=== PATIENT | female | born 1975 | race Caucasian/White ===

== ENCOUNTER 2017-11-17 18:35 | Inpatient (IN) | payer MEDICAID, OTHER ==
[2017-11-17 19:43] LABS: URINE BLOOD (Dip) POC Negative (NEGATIVE); URINE GLUCOSE (Dip) POC Negative (NEGATIVE); URINE KETONES (Dip) POC Negative (NEGATIVE); URINE LEUKOCYTE EST (Dip) POC Negative (NEGATIVE); URINE NITRITE (Dip) POC Negative (NEGATIVE); URINE TOTAL PROTEIN POC Negative (NEGATIVE)
[2017-11-17 20:05] LABS: ADD MAN DIFF? NO
[2017-11-17] MEDS: IBUPROFEN 600 MG TAB PO (20:09)
[2017-11-17] MEDS: SODIUM CHLORIDE 0.9% 1L BAG IV* (20:09)
[2017-11-17] MEDS: CEFTRIAXONE 1 GM/50 ML (PMX) 50 ML IVPB (20:09)
[2017-11-17 20:10] LABS: ADD UMIC NO; UR ASCORBIC ACID NEGATIVE (NEGATIVE); UR BILIRUBIN (Dip) NEGATIVE (NEGATIVE); UR BLOOD (Dip) NEGATIVE (NEGATIVE); UR CLARITY CLEAR (CLEAR); UR COLOR STRAW (YELLOW); UR GLUCOSE (Dip) NEGATIVE (NEGATIVE); UR KETONES (Dip) NEGATIVE (NEGATIVE); UR LEUKOCYTE ESTERASE (Dip) NEGATIVE Leu/ul (NEGATIVE); UR NITRITE (Dip) NEGATIVE (NEGATIVE); UR SPECIFIC GRAVITY (Dip) 1.011 (1.003-1.030); UR TOTAL PROTEIN (Dip) NEGATIVE (NEGATIVE); UR UROBILINOGEN (Dip) NEGATIVE (NEGATIVE)
[2017-11-17] MEDS: DIPHENHYDRAMINE 50 MG INJ IV (20:10)
[2017-11-17 20:16] LABS: WHITE BLOOD COUNT 13.9 10^3/ul (4.8-10.8)
[2017-11-17 20:16] LABS: BASOPHILS % 0.1 % (0.0-2.0); EOSINOPHILS # 0.4 10^3/ul (0.0-0.5); EOSINOPHILS % 2.5 % (0.0-7.0); HEMATOCRIT 34.2 % (37.0-47.0); HEMOGLOBIN 11.2 g/dl (12.0-16.0); LYMPHOCYTES # 2.3 10^3/ul (0.8-2.9); LYMPHOCYTES % 16.3 % (15.0-51.0); MEAN CORPUSCULAR HEMOGLOBIN 28.8 pg (29.0-33.0); MEAN CORPUSCULAR HGB CONC 32.7 g/dl (32.0-37.0); MEAN CORPUSCULAR VOLUME 87.9 fl (82.0-101.0); MEAN PLATELET VOLUME 10.4 fl (7.4-10.4); MONOCYTE # 1.1 10^3/ul (0.3-0.9); MONOCYTES % 7.8 % (0.0-11.0); NEUTROPHIL # 10.2 10^3/ul (1.6-7.5); NEUTROPHILS % 72.9 % (39.0-77.0); PLATELET COUNT 228 10^3/UL (140-415); RED BLOOD COUNT 3.89 10^6/ul (4.20-5.40); RED CELL DISTRIBUTION WIDTH 16.4 % (11.5-14.5)
[2017-11-17 20:25] LABS: ALANINE AMINOTRANSFERASE 14 IU/L (13-69); ALBUMIN 3.9 g/dl (3.3-4.9); ALKALINE PHOSPHATASE 86 IU/L (42-121); ANION GAP 14 (8-16); ASPARTATE AMINO TRANSFERASE 22 IU/L (15-46); BILIRUBIN,INDIRECT 0.4 mg/dl (0-1.1); BILIRUBIN,TOTAL 0.4 mg/dl (0.2-1.3); BLOOD UREA NITROGEN 9 mg/dl (7-20); CALCIUM 8.8 mg/dl (8.4-10.2); CARBON DIOXIDE 26 mmol/L (21-31); CHLORIDE 103 mmol/L (97-110); CREATININE 0.53 mg/dl (0.44-1.00); GLUCOSE 103 mg/dl (70-220); INR 0.91; LIPASE 42 U/L (23-300); POTASSIUM 3.9 mmol/L (3.5-5.1); PROTIME 12.3 Sec (11.9-14.9); SODIUM 139 mmol/L (135-144); TOTAL PROTEIN 7.8 g/dl (6.1-8.1)
[2017-11-17 20:36] LABS: TROPONIN-I < 0.012 ng/ml (0.000-0.120)
[2017-11-17 20:46] LABS: LACTIC ACID 1.3 mmol/L (0.5-2.0)
[2017-11-17] MEDS: MUPIROCIN 2% 22 GM OINT TOP (20:56)
[2017-11-17 21:19] LABS: PARTIAL THROMBOPLASTIN TIME 30.2 Sec (23.0-35.0)
[2017-11-17] MEDS ORDERED: VANCOMYCIN 1 GM (PMX) 250 ML IVPB (22:00)
[2017-11-17 22:21] LABS: LACTIC ACID 0.7 mmol/L (0.5-2.0)
[2017-11-17] MEDS ORDERED: VANCOMYCIN IV PER PHARMACY XX (23:00)
[2017-11-18] MEDS: VANCOMYCIN 1.5 GM in SOD CHLORIDE 0.9% 250 ML IVPB (00:14)
[2017-11-18 00:18] LABS: LACTIC ACID 0.8 mmol/L (0.5-2.0)
[2017-11-18 05:39] LABS: ADD MAN DIFF? NO
[2017-11-18 05:42] LABS: BASOPHILS % 0.1 % (0.0-2.0); EOSINOPHILS # 0.4 10^3/ul (0.0-0.5); EOSINOPHILS % 4.3 % (0.0-7.0); HEMATOCRIT 30.6 % (37.0-47.0); HEMOGLOBIN 9.6 g/dl (12.0-16.0); LYMPHOCYTES # 2.1 10^3/ul (0.8-2.9); LYMPHOCYTES % 20.7 % (15.0-51.0); MEAN CORPUSCULAR HEMOGLOBIN 27.8 pg (29.0-33.0); MEAN CORPUSCULAR HGB CONC 31.4 g/dl (32.0-37.0); MEAN CORPUSCULAR VOLUME 88.7 fl (82.0-101.0); MEAN PLATELET VOLUME 10.3 fl (7.4-10.4); MONOCYTE # 0.8 10^3/ul (0.3-0.9); MONOCYTES % 8.5 % (0.0-11.0); NEUTROPHIL # 6.6 10^3/ul (1.6-7.5); PLATELET COUNT 185 10^3/UL (140-415); RED BLOOD COUNT 3.45 10^6/ul (4.20-5.40); RED CELL DISTRIBUTION WIDTH 16.8 % (11.5-14.5)
[2017-11-18 05:42] LABS: WHITE BLOOD COUNT 9.9 10^3/ul (4.8-10.8)
[2017-11-18] MEDS: SOD CHLORIDE 0.9% 1,000 ML IV ×3 (05:57→18:04)
[2017-11-18 06:00] LABS: ALANINE AMINOTRANSFERASE 26 IU/L (13-69); ALBUMIN 2.5 g/dl (3.3-4.9); ALBUMIN/GLOBULIN RATIO 0.75; ALKALINE PHOSPHATASE 56 IU/L (42-121); ANION GAP 8 (8-16); ASPARTATE AMINO TRANSFERASE 18 IU/L (15-46); BILIRUBIN,INDIRECT 0.9 mg/dl (0-1.1); BILIRUBIN,TOTAL 0.9 mg/dl (0.2-1.3); BLOOD UREA NITROGEN 6 mg/dl (7-20); CALCIUM 7.8 mg/dl (8.4-10.2); CARBON DIOXIDE 24 mmol/L (21-31); CHLORIDE 112 mmol/L (97-110); CREATININE 0.48 mg/dl (0.44-1.00); GLUCOSE 87 mg/dl (70-220); MAGNESIUM 2.1 mg/dl (1.7-2.5); PHOSPHORUS 2.5 mg/dl (2.5-4.9); POTASSIUM 3.6 mmol/L (3.5-5.1); SODIUM 140 mmol/L (135-144); TOTAL PROTEIN 5.8 g/dl (6.1-8.1)
[2017-11-18] MEDS: ACETAMINOPHEN 325 MG TAB PO (07:58)
[2017-11-18] MEDS ORDERED: HYDROCODONE/APAP (10/325) TAB PO (08:30)
[2017-11-18] MEDS: HYDROmorphONE 1 MG/ML SYG IV (08:48)
[2017-11-18 09:51] LABS: IRON 55 ug/dl (35-150)
[2017-11-18 10:01] LABS: % IRON SATURATION 16 % SAT (22-52); TOTAL IRON BINDING CAPACITY 341 ug/dl (241-421)
[2017-11-18] MEDS: VANCOMYCIN 1.25 GM in SOD CHLORIDE 0.9% 250 ML IVPB ×2 (10:40→22:40)
[2017-11-18] MEDS: morphine 2 MG INJ IV ×3 (13:36→22:40)
[2017-11-18] MEDS: AMPICILLIN/SULB 3 GM/NS (PMX) 100 ML IVPB (22:40)
[2017-11-19] MEDS: AMPICILLIN/SULB 3 GM/NS (PMX) 100 ML IVPB ×4 (01:58→17:11)
[2017-11-19] MEDS: SOD CHLORIDE 0.9% 1,000 ML IV ×3 (05:59→13:33)
[2017-11-19] MEDS: VANCOMYCIN 1.25 GM in SOD CHLORIDE 0.9% 250 ML IVPB (13:04)
[2017-11-20] MEDS: AMPICILLIN/SULB 3 GM/NS (PMX) 100 ML IVPB ×5 (00:29→23:34)
[2017-11-20 01:19] LABS: VANCOMYCIN,TROUGH 6.9 ug/ml (10.0-20.0)
[2017-11-20] MEDS: VANCOMYCIN 1.25 GM in SOD CHLORIDE 0.9% 250 ML IVPB (01:37)
[2017-11-20 06:33] LABS: ADD MAN DIFF? NO
[2017-11-20 06:37] LABS: BASOPHILS % 0.2 % (0.0-2.0); EOSINOPHILS # 0.3 10^3/ul (0.0-0.5); EOSINOPHILS % 3.1 % (0.0-7.0); HEMATOCRIT 32.5 % (37.0-47.0); HEMOGLOBIN 10.4 g/dl (12.0-16.0); LYMPHOCYTES % 19.4 % (15.0-51.0); MEAN CORPUSCULAR HEMOGLOBIN 28.2 pg (29.0-33.0); MEAN CORPUSCULAR VOLUME 88.1 fl (82.0-101.0); MEAN PLATELET VOLUME 9.9 fl (7.4-10.4); MONOCYTE # 0.8 10^3/ul (0.3-0.9); MONOCYTES % 7.8 % (0.0-11.0); NEUTROPHILS % 69.2 % (39.0-77.0); PLATELET COUNT 268 10^3/UL (140-415); RED BLOOD COUNT 3.69 10^6/ul (4.20-5.40); RED CELL DISTRIBUTION WIDTH 15.9 % (11.5-14.5)
[2017-11-20 07:07] LABS: ANION GAP 10 (8-16); BLOOD UREA NITROGEN 9 mg/dl (7-20); CALCIUM 8.7 mg/dl (8.4-10.2); CARBON DIOXIDE 27 mmol/L (21-31); CHLORIDE 107 mmol/L (97-110); CREATININE 0.49 mg/dl (0.44-1.00); GLUCOSE 84 mg/dl (70-220); POTASSIUM 3.5 mmol/L (3.5-5.1); SODIUM 140 mmol/L (135-144)
[2017-11-20] MEDS: VANCOMYCIN 1.5 GM in SOD CHLORIDE 0.9% 250 ML IVPB (08:31)
[2017-11-20] MEDS: ACETAMINOPHEN 325 MG TAB PO ×2 (08:31→14:08)
[2017-11-20] MEDS: VANCOMYCIN 750 MG in SOD CHLORIDE 0.9% 150 ML IVPB (16:12)
[2017-11-21] MEDS: VANCOMYCIN 750 MG in SOD CHLORIDE 0.9% 150 ML IVPB ×3 (01:01→17:44)
[2017-11-21] MEDS: AMPICILLIN/SULB 3 GM/NS (PMX) 100 ML IVPB ×3 (05:42→19:56)
[2017-11-21 06:55] LABS: ADD MAN DIFF? NO
[2017-11-21 07:03] LABS: BASOPHILS % 0.1 % (0.0-2.0); EOSINOPHILS # 0.4 10^3/ul (0.0-0.5); EOSINOPHILS % 4.6 % (0.0-7.0); HEMATOCRIT 32.6 % (37.0-47.0); HEMOGLOBIN 10.2 g/dl (12.0-16.0); LYMPHOCYTES # 1.9 10^3/ul (0.8-2.9); LYMPHOCYTES % 20.8 % (15.0-51.0); MEAN CORPUSCULAR HGB CONC 31.3 g/dl (32.0-37.0); MEAN CORPUSCULAR VOLUME 89.6 fl (82.0-101.0); MONOCYTE # 0.7 10^3/ul (0.3-0.9); MONOCYTES % 7.8 % (0.0-11.0); NEUTROPHILS % 66.4 % (39.0-77.0); PLATELET COUNT 277 10^3/UL (140-415); RED BLOOD COUNT 3.64 10^6/ul (4.20-5.40); RED CELL DISTRIBUTION WIDTH 16.1 % (11.5-14.5)
[2017-11-21 07:21] LABS: PHOSPHORUS 3.8 mg/dl (2.5-4.9)
[2017-11-21 07:21] LABS: MAGNESIUM 2.1 mg/dl (1.7-2.5)
[2017-11-21 07:39] LABS: CHOL/HDL RATIO 3.8 RATIO; HDL CHOLESTEROL 34 mg/dl (34-88); LDL CHOLESTEROL,CALCULATED 85 mg/dl; TRIGLYCERIDES 61 mg/dl (0-149)
[2017-11-21 07:39] LABS: CHOLESTEROL 131 mg/dl (100-200)
[2017-11-21 07:40] LABS: ANION GAP 10 (8-16); BLOOD UREA NITROGEN 9 mg/dl (7-20); CALCIUM 8.7 mg/dl (8.4-10.2); CARBON DIOXIDE 27 mmol/L (21-31); CHLORIDE 107 mmol/L (97-110); CREATININE 0.52 mg/dl (0.44-1.00); GLUCOSE 84 mg/dl (70-220); POTASSIUM 3.8 mmol/L (3.5-5.1); SODIUM 140 mmol/L (135-144)
[2017-11-21 08:53] LABS: HEMOGLOBIN A1C 5.4 % (0-5.9)
[2017-11-22] MEDS: AMPICILLIN/SULB 3 GM/NS (PMX) 100 ML IVPB ×4 (00:01→17:48)
[2017-11-22 01:54] LABS: VANCOMYCIN,TROUGH 9.7 ug/ml (10.0-20.0)
[2017-11-22] MEDS: VANCOMYCIN 1 GM 250 ML IVPB ×3 (02:03→17:48)
[2017-11-22 05:50] LABS: ADD MAN DIFF? NO
[2017-11-22 05:55] LABS: BASOPHILS % 0.1 % (0.0-2.0); EOSINOPHILS # 0.3 10^3/ul (0.0-0.5); EOSINOPHILS % 3.9 % (0.0-7.0); HEMATOCRIT 32.8 % (37.0-47.0); HEMOGLOBIN 10.6 g/dl (12.0-16.0); LYMPHOCYTES # 2.3 10^3/ul (0.8-2.9); LYMPHOCYTES % 28.4 % (15.0-51.0); MEAN CORPUSCULAR HEMOGLOBIN 28.3 pg (29.0-33.0); MEAN CORPUSCULAR HGB CONC 32.3 g/dl (32.0-37.0); MEAN CORPUSCULAR VOLUME 87.7 fl (82.0-101.0); MEAN PLATELET VOLUME 9.3 fl (7.4-10.4); MONOCYTE # 0.6 10^3/ul (0.3-0.9); MONOCYTES % 7.2 % (0.0-11.0); NEUTROPHIL # 4.7 10^3/ul (1.6-7.5); NEUTROPHILS % 59.6 % (39.0-77.0); PLATELET COUNT 305 10^3/UL (140-415); RED BLOOD COUNT 3.74 10^6/ul (4.20-5.40); RED CELL DISTRIBUTION WIDTH 15.9 % (11.5-14.5)
[2017-11-22 05:55] LABS: WHITE BLOOD COUNT 7.9 10^3/ul (4.8-10.8)
[2017-11-22 06:18] LABS: PHOSPHORUS 4.2 mg/dl (2.5-4.9)
[2017-11-22 06:18] LABS: ANION GAP 12 (8-16); BLOOD UREA NITROGEN 10 mg/dl (7-20); CALCIUM 8.5 mg/dl (8.4-10.2); CARBON DIOXIDE 26 mmol/L (21-31); CHLORIDE 107 mmol/L (97-110); CREATININE 0.55 mg/dl (0.44-1.00); GLUCOSE 87 mg/dl (70-220); POTASSIUM 3.9 mmol/L (3.5-5.1); SODIUM 141 mmol/L (135-144)
[2017-11-22] MEDS ORDERED: POLYMYXIN/BACITRACIN 1L IRRIG (13:36)
[2017-11-22] MEDS ORDERED: LIDOCAINE 100 MG SYRINGE (13:40)
[2017-11-22] MEDS ORDERED: PROPOFOL 20 ML (13:40)
[2017-11-22] MEDS ORDERED: MEPERIDINE /PF (100 MG/2 ML) AMPULE (13:43)
[2017-11-22] MEDS ORDERED: METOCLOPRAMIDE 10 MG INJ IV (14:00)
[2017-11-22] MEDS ORDERED: LABETALOL HCL 20MG INJ IV (14:00)
[2017-11-22] MEDS ORDERED: DIPHENHYDRAMINE 50 MG INJ IV (14:00)
[2017-11-22] MEDS ORDERED: HYDROmorphONE 1 MG/5 ML IV SYRINGE IV ×3 (14:00)
[2017-11-22] MEDS ORDERED: MEPERIDINE 25 MG INJ IV (14:00)
[2017-11-22] MEDS ORDERED: FENTAnyl 50 MCG/ML VIAL IV ×3 (14:00)
[2017-11-22] MEDS ORDERED: hydrALAzine 20 MG INJ IV (14:00)
[2017-11-22] MEDS ORDERED: EPHEDrine SULFATE 50 MG/5 ML SYG IV (14:00)
[2017-11-22] MEDS ORDERED: MIDAZOLAM 1 MG/ML 2 ML INJ IV (14:00)
[2017-11-22] MEDS ORDERED: OXYCODONE/ACETAMINOPHEN (5/325) TAB PO ×2 (14:00)
[2017-11-22] MEDS ORDERED: ONDANSETRON 4 MG INJ IV (14:00)
[2017-11-22] MEDS ORDERED: MIDAZOLAM 1 MG/ML 2 ML INJ (14:05)
[2017-11-22] MEDS: BUPIVACAINE 0.25% (MPF) 30 ML INJ (14:23)
[2017-11-22] MEDS: LIDOCAINE 1%/EPI 30 ML INJ (14:24)
[2017-11-22] MEDS: POLYMYXIN/BACITRACIN 1L IRRIG IRR (14:25)
[2017-11-22] MEDS ORDERED: HYDROCODONE/APAP (5/325) TAB PO (15:00)
[2017-11-22] MEDS: ONDANSETRON 4 MG INJ IV (18:43)
== END 2017-11-22 20:21 | disposition home or self-care (01) | DRG 854 ==
LOC: PP2 21:48 → E/R 18:35 → PP2 20:52
PROC: 0W9F0ZX Drainage of Abdominal Wall, Open Approach, Diagnostic (ICD-10-PCS; principal; 2017-11-22 13:30)
DX: A41.9 Sepsis, unspecified organism (principal); L03.311 Cellulitis of abdominal wall; L02.211 Cutaneous abscess of abdominal wall; N39.0 Urinary tract infection, site not specified; D64.9 Anemia, unspecified
CPT/HCPCS: 36415; 76536; 80048; 80053; 80061; 80202; 81003; 81025; 83036; 83540; 83605; 83690; 83735; 84100; 84484; 84703; 85025; 85610; 85730; 87040; 87070; 87081; 87086; 93005; 96374; 96375; 99285-25